=== PATIENT | female | born 1985 | race Hispanic/Latino ===

== ENCOUNTER 2016-09-28 16:44 | Outpatient (CLI) | payer MEDICAID ==
[2016-09-28] MEDS ORDERED: LACTATED RINGERS 500 ML IV ONE (17:01)
[2016-09-28 17:29] LABS: Urine Drugs of Abuse Note Disclamer
[2016-09-28 17:33] VITALS: BP 111/58
[2016-09-28 18:20] LABS: Bilirubin,Urine NEG (Negative); Blood,Urine LG (Negative); Ketones,Urine TR mg/dL (Negative); Leukocyte Esterase,Urine SM (Negative); Mucus,Urine 3+ /HPF; Nitrite,Urine NEG (Negative); Urobilinogen,Urine < 2.0 mg/dL (<2.0)
[2016-09-28 18:26] LABS: RBC,Urine > 182.0 /HPF (0.0-6.0)
[2016-09-28] MEDS ORDERED: ROCEPHIN IM ONE (19:25)
[2016-09-28] MEDS ORDERED: XYLOCAINE 1% MPF 5 mL INFILTRATI ONE (19:25)
[2016-09-29] MEDS ORDERED: ROCEPHIN IM ONE (19:27)
--- NOTE | 2016-10-01 08:07 | Ultrasound Report ---
BIOPHYSICAL PROFILE: INDICATION: Limited movement. COMPARISON: None similar. TECHNIQUE: Transabdominal ultrasound with Doppler interrogation. 2 - breathing movements 2 - movements 2 - posture and tone 2 - Qualitative amniotic fluid volume 8 - TOTAL SCORE OF POSSIBLE 8 Heart Rate (bpm) 161
--- NOTE | 2016-10-01 08:13 | Ultrasound Report ---
OB ULTRASOUND GREATER THAN 14 WEEKS INDICATION: Limited movement. COMPARISON: None similar. TECHNIQUE: Transabdominal grayscale ultrasound with Doppler interrogation. Gestation: Davis Position: Variable, ranging cephalic to breech Amniotic Fluid: WNL < 24 weeks, subjective Placenta: Posterior, fundal, left lateral Heart Rate: 163 BPM Cervical length: 3.2 cm (Normal > 3 cm) NEUROANATOMY VISUALIZED: Choroid Plexus Cisterna Magnum Cerebellum Lateral Ventricle ANATOMY VISUALIZED: Stomach Kidneys Bladder Diaphragm 4 Chamber Heart Heart 3 Vessel Cord Abd. Cord Insert SPINE VISUALIZED: Longitudinal Transverse BPD: 4.7 cm = 20 w 2 d HC: 18.9 cm = 21 w 1 d AC: 17.1 cm = 22 w 1 d FL: 3.7 cm = 21 w 4 d HC/AC Ratio: 1.1 Cephalic Index: 73.3 Estimated Weight: 448 grams Clinical age = 22 w 1 d EDC: 01/31/2017 US Gest. Age = 21 w 2 d EDC: 02/06/2017 CONCLUSION: Single, viable intrauterine gestation with ultrasound estimated age of 21 weeks and 2 days and EDC of 02/06/2017, currently in variable lie with details, as above. Thank you for the opportunity to participate in this patient's care.
== END 2016-09-28 20:45 | disposition home or self-care (01) ==
LOC: TRG 16:44
PROVIDERS: ATTEND Obstetrics & Gynecology
DX: O47.02 False labor before 37 completed weeks of gestation, second trimester (principal); Z3A.22 22 weeks gestation of pregnancy
CPT/HCPCS: 76805; 76819; 80307; 81001; 96372; J0696

== ENCOUNTER 2019-05-22 19:54 | Emergency (ER) | payer MEDICAID, SELFPAY ==
--- NOTE | 2019-05-22 20:55 | Event Note ---
ED Screening Note Date of service: 05/22/19 Time: 20:52 ED Screening Note: 33 y/o female comes in for 4 day history of back pain headache, and left hand and left leg numbness. Has been taking Gabapentin, Percocet and muscle relaxant. Has a history of nerve damage. Reports that she had a stroke yesterday and in the past. This initial assessment/diagnostic orders/clinical plan/treatment(s) is/are subject to change based on patients health status, clinical progression and re- assessment by fellow clinical providers in the ED. Further treatment and workup at subsequent clinical providers discretion. Patient/guardian urged not to elope from the ED as their condition may be serious if not clinically assessed and managed. Initial orders include:
[2019-05-22 21:24] LABS: Basophils # (Auto) 0.1 K/mm3 (0.0-0.1); Basophils % (Auto) 0.9 % (0.0-1.8); Eosinophils # (Auto) 0.2 K/mm3 (0.0-0.4); Eosinophils % (Auto) 1.5 % (0.0-4.3); Hematocrit 40.9 % (30.3-42.9); Hemoglobin 13.2 gm/dl (10.1-14.3); Lymphocytes # (Auto) 3.5 K/mm3 (1.2-5.4); Lymphocytes % (Auto) 32.3 % (13.4-35.0); Mean Corpuscular HGB Conc 32 % (30-34); Mean Corpuscular Volume 86 fl (79-97); Monocytes # (Auto) 0.9 K/mm3 (0.0-0.8); Monocytes % (Auto) 8.2 % (0.0-7.3); Platelet Count 322 K/mm3 (140-440); Red Blood Count 4.79 M/mm3 (3.65-5.03)
[2019-05-22 21:42] LABS: Alanine Aminotransferase 16 units/L (7-56); Albumin 4.5 g/dL (3.9-5); BUN/Creatinine Ratio 18; Blood Urea Nitrogen 9 mg/dL (7-17); Calcium 9.2 mg/dL (8.4-10.2); Hemolysis Index 6
[2019-05-22 21:50] LABS: Bilirubin,Urine NEG (Negative); Blood,Urine MOD (Negative); Color,Urine Yellow (Yellow); HCG Qualitative,Urine Negative (Negative); Mucus,Urine 3+ /HPF
[2019-05-22 21:56] LABS: Amphetamine Screen,Urine PRESUMPTIVE NEGATIVE; Benzodiazepines Screen,Urine PRESUMPTIVE NEGATIVE; Cannabinoid Screen,Urine PRESUMPTIVE NEGATIVE; Cocaine Screen,Urine PRESUMPTIVE NEGATIVE; Methadone Screen,Urine PRESUMPTIVE NEGATIVE; Opiate Screen,Urine PRESUMPTIVE NEGATIVE
[2019-05-22] MEDS ORDERED: methylPREDNISolone Sod Succinate 125 MG/2 ML INJ IV ONE (22:19)
[2019-05-22] MEDS ORDERED: METOCLOPRAMIDE 10 MG/2 ML INJ IV ONE (22:19)
[2019-05-22] MEDS ORDERED: diphenhydrAMINE 50 MG/ML VIAL IV ONE (22:19)
[2019-05-22] MEDS ORDERED: SODIUM CHLORIDE 0.9% 1000 ML 1,000 ML IV ONE (22:19)
[2019-05-22] MEDS ORDERED: CYCLOBENZAPRINE 10 MG TAB PO ONE (22:22)
--- NOTE | 2019-05-22 22:26 | Emergency Department Report ---
ED General Adult HPI - General Chief complaint: Neuro Symptoms/Deficit Stated complaint: BACKPAIN/HEADACHE/NUMBNESS Time Seen by Provider: 05/22/19 20:52 Source: patient Mode of arrival: Ambulatory Limitations: No Limitations - History of Present Illness Initial comments: Patient is a 33-year-old female presents emergency room with complaints of a frontal headache that began 4 days ago. She states that she also has chronic left arm tingling and burning sensation for several years which she takes gabapentin for. She states that she has also nausea. Patient has a history of chronic sciatica and states that her left lower back radiating down to her left leg has been bothering her for a few days. She denies any vomiting, diarrhea, fever, vision changes, weakness, urinary symptoms, bowel or bladder incontinence, fall, injury. She has a past medical history of asthma, neuropathy, TIA. She states she has an allergy to morphine and ibuprofen. - Related Data Previous Rx's Medication Instructions Recorded Last Taken Type Butalb/Acetaminophen/Caffeine 1 cap PO Q8HR PRN #10 cap 05/22/19 Unknown Rx [Fioricet 50-300-40 mg CAP] Cyclobenzaprine [Flexeril] 10 mg PO QHS PRN #12 tablet 05/22/19 Unknown Rx Naproxen [EC-Naprosyn] 375 mg PO BID PRN #14 tablet. 05/22/19 Unknown Rx Allergies Allergy/AdvReac Type Severity Reaction Status Date / Time ibuprofen Allergy Intermediate Itching Verified 09/28/16 17:00 ED Review of Systems ROS: Stated complaint: BACKPAIN/HEADACHE/NUMBNESS Other details as noted in HPI Comment: All other systems reviewed and negative ED Past Medical Hx - Past Medical History Previous Medical History?: Yes Hx Hypertension: Yes ("Not taking meds") Hx CVA: Yes Hx Diabetes: No Hx Deep Vein Thrombosis: No Hx Renal Disease: No Hx Sickle Cell Disease: No Hx Seizures: No Hx Asthma: Yes (2 years ago asthma attack) Hx HIV: No Additional medical history: Chronic Sciatica - Surgical History Past Surgical History?: No - Social History Smoking Status: Current Every Day Smoker Substance Use Type: None - Medications Home Medications: Home Medications Medication Instructions Recorded Confirmed Last Taken Type Butalb/Acetaminophen/Caffeine 1 cap PO Q8HR PRN #10 cap 05/22/19 Unknown Rx [Fioricet 50-300-40 mg CAP] Cyclobenzaprine [Flexeril] 10 mg PO QHS PRN #12 tablet 05/22/19 Unknown Rx Naproxen [EC-Naprosyn] 375 mg PO BID PRN #14 tablet. 05/22/19 Unknown Rx ED Physical Exam - General Limitations: No Limitations General appearance: alert, in no apparent distress - Head Head exam: Present: atraumatic, normocephalic - Eye Eye exam: Present: normal appearance, PERRL, EOMI - ENT ENT exam: Present: mucous membranes moist - Respiratory Respiratory exam: Present: normal lung sounds bilaterally. Absent: respiratory distress, wheezes, rales, rhonchi, stridor, chest wall tenderness, accessory muscle use, decreased breath sounds, prolonged expiratory - Cardiovascular Cardiovascular Exam: Present: regular rate, normal rhythm, normal heart sounds. Absent: systolic murmur, diastolic murmur, rubs, gallop - Back Exam Back exam: Present: normal inspection, full ROM, paraspinal tenderness (bilateral paraspinal muscular TTP of the L-spine, no midline C-spine, T-spine, or L-spine tenderness, no step offs, no deformities). Absent: vertebral tenderness - Neurological Exam Neurological exam: Present: alert, oriented X3, CN II-XII intact, other (normal finger to nose, normal heel to cardoso, no pronator drift, no facial asymmetry, equal epic cadence specialists strength, 5/5 strength in the BUE/BLE, sensation intact throughout, no focal neuro deficit, able to lift each leg off the bed and hold it for 15 seconds). Absent: motor sensory deficit - Psychiatric Psychiatric exam: Present: normal affect, normal mood - Skin Skin exam: Present: warm, dry, intact ED Course Vital Signs 05/22/19 05/22/19 19:58 23:11 Temperature 97.9 F Pulse Rate 84 Respiratory 16 18 Rate Blood Pressure 142/85 O2 Sat by Pulse 100 100 Oximetry ED Medical Decision Making - Lab Data Result diagrams: 05/22/19 21:04 05/22/19 21:04 Critical care attestation.: If time is entered above; I have spent that time in minutes in the direct care of this critically ill patient, excluding procedure time. ED Disposition Clinical Impression: Neuropathy Headache Qualifiers: Headache type: unspecified Headache chronicity pattern: acute headache Intractability: not intractable Qualified Code(s): R51 - Headache Chronic sciatica Qualifiers: Laterality: left Qualified Code(s): M54.32 - Sciatica, left side Disposition: TO HOME OR SELFCARE Is pt being admited?: No Does the pt Need Aspirin: No Condition: Stable Instructions: Acute Headache (ED), Sciatica (ED), Peripheral Neuropathy (ED) Additional Instructions: Please take medication as prescribed. Do not drive or operate machinery while taking muscle relaxer. May use ice pack, heating pad, rest, Epsom salt bath. Follow-up with a primary care doctor and a neurologist in the next 2-3 days. Return to the emergency room for any new or worsening symptoms. Prescriptions: Cyclobenzaprine [Flexeril] 10 mg PO QHS PRN #12 tablet PRN Reason: Muscle Spasm Naproxen [EC-Naprosyn] 375 mg PO BID PRN #14 tablet.dr PRN Reason: pain Butalb/Acetaminophen/Caffeine [Fioricet 50-300-40 mg CAP] 1 cap PO Q8HR PRN #10 cap PRN Reason: Headache Referrals: ARABELLA WINTERS MD [Primary Care Provider] - 2-3 Days DAVI DEL ANGEL MD [Staff Physician] - 2-3 Days ALEXI SEGAL MD [Referring] - 2-3 Days LORENE ROBERTS MD [Staff Physician] - 2-3 Days Time of Disposition: 23:43 Print Language: ARABIC
--- NOTE | 2019-05-22 23:14 | Cat Scan Report ---
CT head/brain wo con INDICATION / CLINICAL INFORMATION: headache. TECHNIQUE: Axial CT imaging of the brain was obtained without contrast. Coronal and sagittal reformatted imaging obtained and reviewed. All CT scans at this location are performed using CT dose reduction for ALAR A by means of automated exposure control. COMPARISON: None available. FINDINGS: No intracranial hemorrhage, mass, or midline shift is identified. No extra-axial fluid collection or suggestion of acute territorial infarct. Ventricular system and basilar cisterns are unremarkable. Visualized paranasal sinuses and mastoid air cells are well aerated and clear. No calvarial abnormali ty. IMPRESSION: 1. Negative noncontrasted head CT scan. Signer Name: Olimpia Oleary MD Signed: 05/22/2019 11:09 PM Workstation Name: [email or web address]
[2019-05-23 00:18] VITALS: BP 120/85
== END 2019-05-23 00:18 | disposition home or self-care (01) ==
LOC: ED 19:54
DX: G62.9 Polyneuropathy, unspecified (principal); R51 Headache; M54.30 Sciatica, unspecified side; I10 Essential (primary) hypertension; J45.909 Unspecified asthma, uncomplicated; F17.200 Nicotine dependence, unspecified, uncomplicated; Z86.73 Personal history of transient ischemic attack (TIA), and cerebral infarction without residual deficits; Z79.899 Other long term (current) drug therapy; Z88.8 Allergy status to other drugs, medicaments and biological substances
CPT/HCPCS: 36415; 70450; 80053; 80307; 81001; 81025; 85025; 96374; 96375; 99284; J1200; J2765; J2930; J7030

== ENCOUNTER 2020-08-01 15:50 | Emergency (ER) | payer OTHER ==
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
[2020-08-01 22:32] VITALS: BP 120/79
== END 2020-08-01 22:35 | disposition home or self-care (01) ==
LOC: ED 15:50
DX: S09.90XA Unspecified injury of head, initial encounter (principal); M79.604 Pain in right leg; M25.521 Pain in right elbow; M25.511 Pain in right shoulder; I10 Essential (primary) hypertension; J45.909 Unspecified asthma, uncomplicated; F17.200 Nicotine dependence, unspecified, uncomplicated; Z79.899 Other long term (current) drug therapy; Z86.73 Personal history of transient ischemic attack (TIA), and cerebral infarction without residual deficits; Z88.6 Allergy status to analgesic agent
CPT/HCPCS: 70450; 72125; 72170

== ENCOUNTER 2020-10-31 22:54 | Emergency (ER) | payer OTHER ==
[2020-11-01 00:56] LABS: Basophils % (Auto) 0.6 % (0.0-1.8); Eosinophils # (Auto) 0.1 K/mm3 (0.0-0.4); Hematocrit 34.6 % (30.3-42.9); Hemoglobin 11.2 gm/dl (10.1-14.3); Lymphocytes # (Auto) 2.9 K/mm3 (1.2-5.4); Lymphocytes % (Auto) 35.3 % (13.4-35.0); Mean Corpuscular HGB Conc 32 % (30-34); Mean Corpuscular Volume 86 fl (79-97); Monocytes # (Auto) 0.9 K/mm3 (0.0-0.8); Monocytes % (Auto) 11.1 % (0.0-7.3); Platelet Count 332 K/mm3 (140-440); Red Blood Count 4.03 M/mm3 (3.65-5.03); Red Cell Distribution Width 14.7 % (13.2-15.2)
[2020-11-01 01:26] LABS: Bacteria,Urine 1+ /HPF (Negative); Bilirubin,Urine NEG (Negative); Blood,Urine NEG (Negative); Color,Urine Yellow (Yellow); Mucus,Urine 1+ /HPF; Protein,Urine <15 mg/dL mg/dL (Negative); Urobilinogen,Urine < 2.0 mg/dL (<2.0)
--- NOTE | 2020-11-01 06:19 | Emergency Department Report ---
ED Female HPI - General Chief complaint: Vaginal Bleeding Stated complaint: 2MTHS PREG/SPOTTING/DIZZY Time Seen by Provider: 11/01/20 06:11 Source: patient Mode of arrival: Ambulatory Limitations: No Limitations - History of Present Illness Initial comments: CC: spotting, headache HPI: This is a 34 yo female [id number] who presents with headache and vaginal spotting. On yesterday patient began spotting or vaginal blood. Mild. She denies any abdominal pain. She has mild frontal headache. She estimates that she is 7 to 8 weeks . Her second obstetrical appointment tomorrow. Patient mentioned lower pelvic pain to triage nurse. Past medical history includes asthma, CVA, hypertension, sciatica MD Complaint: vaginal bleeding -: Gradual Severity: mild Severity scale (0 -10): 4 Quality: cramping Consistency: intermittent, now resolved Worsens with: none Are you Now?: Yes Associated Symptoms: vaginal discharge - Related Data Previous Rx's Medication Instructions Recorded Last Taken Type Butalb/Acetaminophen/Caffeine 1 cap PO Q8HR PRN #10 cap 05/22/19 Unknown Rx [Fioricet 50-300-40 mg CAP] Cyclobenzaprine [Flexeril] 10 mg PO QHS PRN #12 tablet 05/22/19 Unknown Rx Naproxen [EC-Naprosyn] 375 mg PO BID PRN #14 tablet. 05/22/19 Unknown Rx HYDROcodone/APAP 5-325 [[place] 1 each PO Q6HR PRN #10 tablet 08/01/20 Unknown Rx 5/325] Ondansetron [Zofran Odt] 4 mg PO Q8HR PRN #10 tab.rapdis 11/01/20 Unknown Rx Allergies Allergy/AdvReac Type Severity Reaction Status Date / Time ibuprofen Allergy Intermediate Itching Verified 08/01/20 16:25 morphine Allergy Swelling Verified 11/01/20 06:21 ED Review of Systems ROS: Stated complaint: 2MTHS PREG/SPOTTING/DIZZY Other details as noted in HPI Comment: All other systems reviewed and negative Constitutional: denies: fever, malaise Respiratory: denies: cough, shortness of breath Gastrointestinal: abdominal pain Neurological: headache ED Past Medical Hx - Past Medical History Previous Medical History?: Yes Hx Hypertension: Yes ("Not taking meds") Hx CVA: Yes (no deficits) Hx Diabetes: No Hx Deep Vein Thrombosis: No Hx Renal Disease: No Hx Sickle Cell Disease: No Hx Seizures: No Hx Asthma: Yes (2 years ago asthma attack) Hx HIV: No Additional medical history: Chronic Sciatica - Surgical History Past Surgical History?: No - Social History Smoking Status: Current Every Day Smoker Substance Use Type: None - Medications Home Medications: Home Medications Medication Instructions Recorded Confirmed Last Taken Type Butalb/Acetaminophen/Caffeine 1 cap PO Q8HR PRN #10 cap 05/22/19 Unknown Rx [Fioricet 50-300-40 mg CAP] Cyclobenzaprine [Flexeril] 10 mg PO QHS PRN #12 tablet 05/22/19 Unknown Rx Naproxen [EC-Naprosyn] 375 mg PO BID PRN #14 tablet.dr 05/22/19 Unknown Rx HYDROcodone/APAP 5-325 [[place] 1 each PO Q6HR PRN #10 tablet 08/01/20 Unknown Rx 5/325] Ondansetron [Zofran Odt] 4 mg PO Q8HR PRN #10 tab.rapdis 11/01/20 Unknown Rx ED Physical Exam - General Limitations: No Limitations General appearance: alert, in no apparent distress - Head Head exam: Present: atraumatic, normocephalic - Eye Eye exam: Present: normal appearance - ENT ENT exam: Present: mucous membranes moist - Neck Neck exam: Present: normal inspection - Respiratory Respiratory exam: Present: normal lung sounds bilaterally. Absent: respiratory distress, wheezes, rales, rhonchi - Cardiovascular Cardiovascular Exam: Present: regular rate, normal rhythm, normal heart sounds. Absent: systolic murmur, diastolic murmur, rubs, gallop - GI/Abdominal GI/Abdominal exam: Present: soft, normal bowel sounds. Absent: distended, tenderness, guarding, rebound - Extremities Exam Extremities exam: Present: normal inspection - Neurological Exam Neurological exam: Present: alert, oriented X3 - Psychiatric Psychiatric exam: Present: normal affect, normal mood - Skin Skin exam: Present: warm, dry, intact, normal color. Absent: rash ED Course Vital Signs 11/01/20 11/01/20 00:12 06:16 Temperature 98.3 F Pulse Rate 79 68 Respiratory 16 18 Rate Blood Pressure 126/72 119/71 [Right] O2 Sat by Pulse 100 100 Oximetry ED Medical Decision Making - Lab Data Result diagrams: 11/01/20 00:29 - Radiology Data Radiology results: report reviewed Patient Name: TOAN LOJA Gender: Female Date of : 1985 Referring Provider: MAYRA MCCALLUM Organization: [facility] Accession Number: [id number] Requested Date: November 01, 2020 06:17 Report Status: Final Requested Procedure: 1 Procedure Description: US OB <= 14 weeks fetus Modality: US Findings Reporting MD: Carlos Coker Dictation Time: November 01, 2020 06:15 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 Left ovary 2.0 x 1.2 x 1.3 cm. Cystic lesion in the right adnexa measures 0.9 cm. Uterus measures 8.7 x 5.0 x 5.2 cm. Small subchorionic hemorrhage is noted. heart rate 1 2. Gestational sac measures 12.9 mm measuring 6 weeks 1 day. [place]-rump length measures 2.7 mm measuring 5 weeks 6 days. IMPRESSION: 1. Live intrauterine 2. Small subchorionic bleed. 3. Right adnexal cyst. Signer Name: Carlos Coker MD Signed: 11/01/2020 6:15 AM Workstation Name: [id number] - Medical Decision Making 1. Tension headache. Patient has had several previous ED encounters at this hospital for headache. Previously prescribed Fioricet. She was treated with Zofran and Tylenol. 2. Threatened miscarriage: Vaginal bleeding with pelvic cramping: Ultrasound obtained to rule out ectopic and confirm IUP. Rh+ Critical care attestation.: If time is entered above; I have spent that time in minutes in the direct care of this critically ill patient, excluding procedure time. ED Disposition Clinical Impression: Threatened miscarriage, Tension headache Disposition: DC-01 TO HOME OR SELFCARE Is pt being admited?: No Does the pt Need Aspirin: No Condition: Stable Instructions: Threatened Miscarriage, Tension Headache, Adult, [id number] Prescriptions: Ondansetron [Zofran Odt] 4 mg PO Q8HR PRN #10 tab.rapdis PRN Reason: Nausea Referrals: PRIMARY CARE,MD [Primary Care Provider] - 3-5 Days
[2020-11-01] MEDS ORDERED: ACETAMINOPHEN 500 MG TAB PO ONE (06:22)
[2020-11-01] MEDS ORDERED: ONDANSETRON 4 MG ODT TAB PO ONE (06:22)
--- NOTE | 2020-11-01 07:19 | Ultrasound Report ---
LV ultrasound INDICATION: Pelvic pain FINDINGS: Right ovary measures 2.8 x 2.2 x 2.5 cm. Left ovary 2.0 x 1.2 x 1.3 cm. Cystic lesion in th e right adnexa measures 0.9 cm. Uterus measures 8.7 x 5.0 x 5.2 cm. Small subchorionic hemorrhage is noted. heart rate 1 2. Gestational sac measures 12.9 mm measuring 6 weeks 1 day. [place]-rump alvina gth measures 2.7 mm measuring 5 weeks 6 days. IMPRESSION: 1. Live intrauterine 2. Small subchorionic bleed. 3. Right adnexal cyst. Signer Name: Carlos Coker MD Signed: 11/01/2020 7:15 AM Workstation Name: [id number]
[2020-11-01 08:18] VITALS: BP 124/77
--- NOTE | 2020-11-02 19:18 | Electrocardiograph Report ---
[facility] Test Date: 2020-11-01 Test Time: 00:22:01 Pat Name: TOAN LOJA Department: Room: Gender: F Materials Technician: CALE : 1985 Requested By: MAYRA MCCALLUM Order Number: [id number] Reading MD: Chanell Giron Measurements Intervals [place] Rate: 83 P: 61 PA: 141 QRS: 80 QRSD: 82 T: 49 QT: 389 QTc: 457 Interpretive Statements Sinus rhythm Consider left ventricular hypertrophy No previous ECG available for comparison Electronically Signed On 11-02-2020 19:18:28 EDT by Chanell Giron
== END 2020-11-01 08:15 | disposition home or self-care (01) ==
LOC: ED 22:54
DX: O20.0 Threatened abortion (principal); O26.891 Other specified pregnancy related conditions, first trimester; G44.209 Tension-type headache, unspecified, not intractable; I10 Essential (primary) hypertension; J45.909 Unspecified asthma, uncomplicated; F17.200 Nicotine dependence, unspecified, uncomplicated; Z3A.01 Less than 8 weeks gestation of pregnancy; Z79.899 Other long term (current) drug therapy; Z88.8 Allergy status to other drugs, medicaments and biological substances
CPT/HCPCS: 36415; 76801; 76817; 81001; 84702; 84703; 85025; 86900; 86901; 93005; Q0162